=== PATIENT | female | born 1965 | race Caucasian/White ===

== ENCOUNTER 2016-07-12 00:46 | Emergency (ER) ==
[2016-07-12] MEDS ORDERED: ASPIRIN PO STA (00:59)
[2016-07-12 01:13] LABS: MANUAL DIFF NEEDED? NO
[2016-07-12 01:17] LABS: BASO% 0.2 % (0.0-0.8); EOS# 0.13 X1000 (0.0-0.7); HEMATOCRIT 44.7 % (37.0-47.0); HEMOGLOBIN 15.3 g/dL (12.0-16.0); IMM GRAN# 0.02 X1000 (0.0-0.04); IMM GRAN% 0.2 % (0.0-0.5); LYMPH# 3.33 X1000 (1.2-3.4); LYMPH% 25.2 % (20.5-51.1); MCH 31.9 PG (27-31); MCHC 34.2 g/dL (33-37); MCV 93.1 FL (81-99); MONO% 6.8 % (1.7-9.3); MPV 11.5 FL (7.4-10.4); NEUT% 66.6 % (42.2-75.2); PLT 200 X1000 (130-400)
[2016-07-12 01:33] LABS: INR 0.95; PROTIME 10.1 Seconds (9.2-11.7)
[2016-07-12 01:41] LABS: AGAP 14; ALBUMIN 3.8 g/dL (3.5-5.0); ALKALINE PHOSPHATASE 117 U/L (32-104); BUN 9 mg/dL (8-22); CALCIUM 9.3 mg/dL (8.8-10.2); CHLORIDE 99 mmol/L (98-107); CK PROFILE 48 U/L (24-173); COSMO 279; GOT 79 U/L (10-30); GPT 24 U/L (10-36); POTASSIUM 3.4 mmol/L (3.5-5.1); SODIUM 140 mmol/L (136-145); TCO2 27 mmol/L (25-35); TOTAL BILIRUBIN 0.35 mg/dL (0.20-1.00); TOTAL PROTEIN 6.5 g/dL (6.3-8.3)
[2016-07-12] MEDS ORDERED: MORPHINE IV ONE ×2 (01:57→03:13)
[2016-07-12] MEDS ORDERED: ZOFRAN IV ONE (01:57)
[2016-07-12] MEDS ORDERED: ATIVAN IV ONE (01:58)
[2016-07-12] MEDS ORDERED: G.I. COCKTAIL PO ONE (01:58)
--- NOTE | 2016-07-12 02:50 | PROVIDER DOCUMENTATION ---
HPI-Chest Pain - General Chief Complaint: Chest Pain Stated Complaint: CP, SOB Time Seen by Provider: 07/12/16 00:59 Source: patient Allergies/Adverse Reactions: Patient Allergies Allergy/AdvReac Type Severity Reaction Status Date / Time No Known Allergies Allergy Verified 07/12/16 01:09 Home Medications: Alprazolam [Xanax] 1 mg PO TID 05/01/12 Hydrocodone/Acetaminophen [Lorcet 10-650 Tablet] 1 each PO 4XDAY 05/01/12 LISINOpril [Prinivil] 10 mg PO QAM 05/01/12 Levothyroxine Sodium [Synthroid] 50 mcg PO QAM 05/01/12 SIMVAstatin [Zocor] 40 mg PO QHS 05/01/12 - History of Present Illness-CP Nature of Presenting Problem: pt states that about 2 hours [employer] while in the ICU waiting area she developed a severe sharp stabbing pain between her upper shoulder area that radiated into her chest and towards her left shoulder. She felt SOB. No nausea or diaphoresis. No recent illness. She states she is under a lot of stress and prone to panic attacks. No recent illness. She has not been taking her regular meds for a couple of days now Review of Systems - Adult - REVIEW OF SYSTEMS - ADULT Constitutional: denies: chills, fever Eyes: denies: discharge Ears, Nose, Mouth & Throat: denies: ear pain, sinus problem, throat pain Cardiovascular: reports: chest pain. denies: edema, orthopnea, palpitations, syncope Respiratory: reports: chronic cough, shortness of breath. denies: excessive sputum production, pleurisy, wheezing Gastrointestinal: denies: abdominal pain, hematemesis, diarrhea, nausea, rectal bleeding, vomiting Genitourinary: denies: dysuria, frequency, flank pain Musculoskeletal: denies: back pain, muscle aches Integumentary: denies: rash Neurological: denies: headache/migraines, numbness, paresthesia, seizure, slurred speech All Other Systems: Reviewed and Negative Past History - Adult - PAST MEDICAL HISTORY-ADULT Review of Records: reports: Old Records Reviewed, Nursing Assessment Review, Medications Reviewed, Social history reviewed & non-contributory. - PRIOR SURGERIES/PROCEDURES Surgical/Procedure History: reports: cholecystectomy, hysterectomy - IMMUNIZATION STATUS Childhood Immunizations: See Nurse Assessment Flu Vaccine: See Nurse Assessment Physical Exam-General - PHYSICAL EXAM-ADULT Initial Vital Signs Reviewed: Yes - CONSTITUTIONAL General Appearance: appears well, alert, no apparent distress - EYES Eyes: pink conjunctivae. negative: scleral icterus - HEAD, EARS, NOSE, MOUTH & THROAT HENMT: normocephalic/atraumatic - NECK Neck: non-tender, full range of motion, supple, normal inspection - RESPIRATORY Respiratory: chest non-tender, lungs clear, normal breath sounds, no pleuratic chest pain, no respiratory distress, no accessory muscle use - CARDIOVASCULAR Cardiovascular: regular rate, rhythm, no edema, no murmur - GASTROINTESTINAL (ABDOMEN) Abdominal Exam: normal bowel sounds, non tender, soft, no organomegaly, no pulsatile mass - MUSCULOSKELETAL Back Exam: normal inspection, no CVA tenderness, no vertebral tenderness Extremity: non-tender, normal inspection, no pedal edema, no calf tenderness - SKIN Integumentary: normal color, normal turgor, warm/dry - NEUROLOGIC Neurologic: grossly normal, no motor/sensory deficits - PSYCHIATRIC Psych/Mental Status: normal mood/affect, normal thought content, normal thought process, oriented x 3 Progress - PLAN OF CARE/RESULTS Progress/Plan/Lab Results: Laboratory Tests 07/12/16 07/12/16 07/12/16 01:00 01:00 01:00 WBC 13.22 H RBC 4.80 Hgb 15.3 Hct 44.7 MCV 93.1 MCH 31.9 H MCHC 34.2 RDW Std Deviation 13.7 Plt Count 200 MPV 11.5 H Immature Gran % (Auto) 0.2 Neut % (Auto) 66.6 Lymph % (Auto) 25.2 [place] % (Auto) 6.8 Eos % (Auto) 1.0 Baso % (Auto) 0.2 Immature Gran # (Auto) 0.02 Neut # (Auto) 8.82 H Lymph # (Auto) 3.33 [place] # (Auto) 0.90 H Eos # (Auto) 0.13 Baso # (Auto) 0.02 PT INR PTT (Actin FS) D-Dimer 0.38 Sodium 140 Potassium 3.4 L Chloride 99 Carbon Dioxide 27 Anion Gap 14 BUN 9 Creatinine 0.6 Estimated GFR/1.73 m2 > 60 BUN/Creatinine Ratio 15 Glucose 107 H Calculated Osmolality 279 Calcium 9.3 Magnesium 2.0 Total Bilirubin 0.35 AST 79 H ALT 24 Alkaline Phosphatase 117 H Creatine Kinase 48 Troponin T Xln-U-Dqiyylfaifq Pept Total Protein 6.5 Albumin 3.8 Globulin 2.7 Albumin/Globulin Ratio 1.4 Lipase 07/12/16 07/12/16 07/12/16 01:00 01:00 01:00 WBC RBC Hgb Hct MCV MCH MCHC RDW Std Deviation Plt Count MPV Immature Gran % (Auto) Neut % (Auto) Lymph % (Auto) [place] % (Auto) Eos % (Auto) Baso % (Auto) Immature Gran # (Auto) Neut # (Auto) Lymph # (Auto) [place] # (Auto) Eos # (Auto) Baso # (Auto) PT 10.1 INR 0.95 PTT (Actin FS) 27.0 D-Dimer Sodium Potassium Chloride Carbon Dioxide Anion Gap BUN Creatinine Estimated GFR/1.73 m2 BUN/Creatinine Ratio Glucose Calculated Osmolality Calcium Magnesium Total Bilirubin AST ALT Alkaline Phosphatase Creatine Kinase Troponin T < 0.010 Mmr-E-Jpbbyvktjyk Pept 202 H Total Protein Albumin Globulin Albumin/Globulin Ratio Lipase 07/12/16 07/12/16 07/12/16 01:00 02:50 02:50 WBC RBC Hgb Hct MCV MCH MCHC RDW Std Deviation Plt Count MPV Immature Gran % (Auto) Neut % (Auto) Lymph % (Auto) [place] % (Auto) Eos % (Auto) Baso % (Auto) Immature Gran # (Auto) Neut # (Auto) Lymph # (Auto) [place] # (Auto) Eos # (Auto) Baso # (Auto) PT INR PTT (Actin FS) D-Dimer Sodium Potassium Chloride Carbon Dioxide Anion Gap BUN Creatinine Estimated GFR/1.73 m2 BUN/Creatinine Ratio Glucose Calculated Osmolality Calcium Magnesium Total Bilirubin AST ALT Alkaline Phosphatase Creatine Kinase 42 Troponin T < 0.010 Nlq-E-Kvtzkayvzth Pept Total Protein Albumin Globulin Albumin/Globulin Ratio Lipase 52 Orders Category Date Time Status Cardiac Monitoring DIRECTED Care 07/12/16 00:59 Active CHEST-2 VIEWS [RAD] Stat Exams 07/12/16 00:59 Taken CBC WITH ELECTRONIC DIFF [HEME] Stat Lab 07/12/16 01:00 Completed CK PROFILE [SP CHEM] Stat Lab 07/12/16 01:00 Completed CK PROFILE [SP CHEM] Stat Lab 07/12/16 02:50 Completed COMPREHENSIVE METABOLIC PANEL [CHEM] Stat Lab 07/12/16 01:00 Completed D-DIMER [CHEM] Stat Lab 07/12/16 01:00 Completed LIPASE [CHEM] Stat Lab 07/12/16 01:00 Completed MAGNESIUM [CHEM] Stat Lab 07/12/16 01:00 Completed PRO B-NATRIURETIC PEPTIDE Stat Lab 07/12/16 01:00 Completed PROTIME WITH INR [COAG] Stat Lab 07/12/16 01:00 Completed PTT [COAG] Stat Lab 07/12/16 01:00 Completed TROPONIN T Stat Lab 07/12/16 01:00 Completed TROPONIN T Stat Lab 07/12/16 02:50 Completed Aspirin Med 07/12/16 00:59 Discontinued 325 mg PO STAT STA Hydrocodone/APAP 7.5 mg/325 mg [[place]-7.5] Med 07/12/16 03:31 Once 1 each PO NOW ONE [place] Alk/Al&mg Hydrox [G.i. Cocktail] Med 07/12/16 01:58 Discontinued 30 ml PO NOW ONE Lorazepam [Ativan] Med 07/12/16 01:58 Discontinued 1 mg IV NOW ONE Morphine Med 07/12/16 01:57 Discontinued 4 mg IV NOW ONE Morphine Med 07/12/16 03:13 Discontinued 4 mg IV NOW ONE Ondansetron [Zofran] Med 07/12/16 01:57 Discontinued 4 mg IV NOW ONE EKG [EKG] Stat Ther 07/12/16 00:51 Ordered EKG [EKG] Stat Ther 07/12/16 02:45 Ordered Vital Signs Temp Pulse Resp BP Pulse Ox 07/12/16 03:15 60 16 152/92 95 07/12/16 01:05 98.0 F 63 20 159/109 99 No Known Allergies Allergy (Verified 07/12/16 01:09) Alprazolam [Xanax] 1 mg PO TID 05/01/12 Hydrocodone/Acetaminophen [Lorcet 10-650 Tablet] 1 each PO 4XDAY 05/01/12 LISINOpril [Prinivil] 10 mg PO QAM 05/01/12 Levothyroxine Sodium [Synthroid] 50 mcg PO QAM 05/01/12 SIMVAstatin [Zocor] 40 mg PO QHS 05/01/12 Laboratory 07/12/16 07/12/16 07/12/16 02:50 02:50 01:00 WBC RBC Hgb Hct MCV MCH MCHC RDW Std Deviation Plt Count MPV Immature Gran % (Auto) Neut % (Auto) Lymph % (Auto) [place] % (Auto) Eos % (Auto) Baso % (Auto) Immature Gran # (Auto) Neut # (Auto) Lymph # (Auto) [place] # (Auto) Eos # (Auto) Baso # (Auto) PT INR PTT (Actin FS) D-Dimer Sodium Potassium Chloride Carbon Dioxide Anion Gap BUN Creatinine Estimated GFR/1.73 m2 BUN/Creatinine Ratio Glucose Calculated Osmolality Calcium Magnesium Total Bilirubin AST ALT Alkaline Phosphatase Creatine Kinase 42 Troponin T < 0.010 Hki-Y-Cxqjwlrcmld Pept Total Protein Albumin Globulin Albumin/Globulin Ratio Lipase 52 07/12/16 07/12/16 07/12/16 01:00 01:00 01:00 WBC RBC Hgb Hct MCV MCH MCHC RDW Std Deviation Plt Count MPV Immature Gran % (Auto) Neut % (Auto) Lymph % (Auto) [place] % (Auto) Eos % (Auto) Baso % (Auto) Immature Gran # (Auto) Neut # (Auto) Lymph # (Auto) [place] # (Auto) Eos # (Auto) Baso # (Auto) PT 10.1 INR 0.95 PTT (Actin FS) 27.0 D-Dimer Sodium Potassium Chloride Carbon Dioxide Anion Gap BUN Creatinine Estimated GFR/1.73 m2 BUN/Creatinine Ratio Glucose Calculated Osmolality Calcium Magnesium Total Bilirubin AST ALT Alkaline Phosphatase Creatine Kinase Troponin T < 0.010 Jhc-B-Mnuavxnnjqg Pept 202 H Total Protein Albumin Globulin Albumin/Globulin Ratio Lipase 07/12/16 07/12/16 07/12/16 01:00 01:00 01:00 WBC 13.22 H RBC 4.80 Hgb 15.3 Hct 44.7 MCV 93.1 MCH 31.9 H MCHC 34.2 RDW Std Deviation 13.7 Plt Count 200 MPV 11.5 H Immature Gran % (Auto) 0.2 Neut % (Auto) 66.6 Lymph % (Auto) 25.2 [place] % (Auto) 6.8 Eos % (Auto) 1.0 Baso % (Auto) 0.2 Immature Gran # (Auto) 0.02 Neut # (Auto) 8.82 H Lymph # (Auto) 3.33 [place] # (Auto) 0.90 H Eos # (Auto) 0.13 Baso # (Auto) 0.02 PT INR PTT (Actin FS) D-Dimer 0.38 Sodium 140 Potassium 3.4 L Chloride 99 Carbon Dioxide 27 Anion Gap 14 BUN 9 Creatinine 0.6 Estimated GFR/1.73 m2 > 60 BUN/Creatinine Ratio 15 Glucose 107 H Calculated Osmolality 279 Calcium 9.3 Magnesium 2.0 Total Bilirubin 0.35 AST 79 H ALT 24 Alkaline Phosphatase 117 H Creatine Kinase 48 Troponin T Txi-F-Htpuiozydgg Pept Total Protein 6.5 Albumin 3.8 Globulin 2.7 Albumin/Globulin Ratio 1.4 Lipase - REASSESSMENT Reassessment #1 Time Reassessed: 02:49 (pt feels much better after meds) Status: improving - EKG 1 Time of EKG reading by physician:: 00:55 EKG Interpretation (*Must complete 3 of following elements*): Normal Rate: 68 Rhythm: sinus [place]: normal QRS: normal RI Interval: normal ST Wave: normal 2 Time of EKG reading by physician:: 03:00 EKG Interpretation (*Must complete 3 of following elements*): Normal Rate: 55 Rhythm: sinus henrique [place]: normal QRS: normal, other (prolonged qt) RI Interval: normal ST Wave: non-specific ST changes Prior EKG Comparison: changes noted Departure - Departure Time of Disposition Order: 03:32 DIAGNOSIS: Atypical chest pain Disposition: HOME 01 Certified Medical Emergency: Emergent Condition: Good
[2016-07-12 03:16] VITALS: BP 152/92
[2016-07-12] MEDS ORDERED: NORCO-7.5 PO ONE (03:31)
--- NOTE | 2016-07-12 08:12 | Diag Imaging Result Document ---
PROCEDURE NAME: CHEST-2 VIEWS - 07/12/2016 TWO VIEWS OF THE CHEST: FINDINGS: There is no evidence of acute cardiac rule out pulmonary disease. Compared to 09/11/2013 there has been no significant change in the appearance of the chest. IMPRESSION: No evidence of acute disease.
--- NOTE | 2016-07-12 09:01 | EKG Report ---
Test Performed on : 07/12/2016 03:00:18 AM Test Reason : cp Blood Pressure : / mmHG Vent. Rate : 055 BPM Atrial Rate : 055 BPM P-R Int : 166 ms QRS Dur : 080 ms QT Int : 490 ms P-R-T Axes : 061 000 -31 degrees QTc Int : 468 ms Sinus bradycardia. Nonspecific T wave abnormality Prolonged QT Abnormal ECG When compared with ECG of 12-JUL-2016 00:55, (Unconfirmed) Nonspecific T wave abnormality now evident in Anterior leads Unconfirmed Result
--- NOTE | 2016-07-12 09:01 | EKG Report ---
Test Performed on : 07/12/2016 00:55:02 AM Test Reason : CHEST PAIN Blood Pressure : / mmHG Vent. Rate : 068 BPM Atrial Rate : 068 BPM P-R Int : 142 ms QRS Dur : 074 ms QT Int : 466 ms P-R-T Axes : 067 020 000 degrees QTc Int : 495 ms Normal sinus rhythm. Normal ECG When compared with ECG of 11-SEP-2013 18:53, Criteria for Septal infarct are no longer present Nonspecific T wave abnormality now evident in Inferior leads QT has lengthened Unconfirmed Result
== END 2016-07-12 03:48 | disposition home or self-care (01) ==
LOC: ED 00:46
DX: R07.89 Other chest pain (principal); M54.6 Pain in thoracic spine; R06.02 Shortness of breath; R05 Cough; Z79.899 Other long term (current) drug therapy
CPT/HCPCS: 36415; 71020; 80053; 82550; 83690; 83735; 83880; 84484; 85025; 85379; 85610; 85730; 93005; 96374; 96375; 96376; J2060; J2270; J2405